=== PATIENT | male | born 1965 | race Two or more races ===

== ENCOUNTER 2019-08-08 06:26 | Day surgery (SDC) | payer OTHER ==
[~2019-08-08] VITALS: Ht 165.1 cm; Wt 68.9 kg
[2019-08-08] VITALS (10 sets, daily range): BP systolic 119–145; BP diastolic 59–83
[~2019-08-08 06:26] MED LIST: Clindamycin 600mg/D5W 50ml IV ONE; celeBREX 200mg Cap **SURGERY PATIENTS ONLY ORAL ONE; oxyCONTIN 20mg tab ORAL ONE
--- NOTE | 2019-08-08 06:52 | Pre-Procedure Note/Attestation ---
Pre-Procedure Note/Attestation Complete Prior to Procedure Planned Procedure: right Procedure Narrative: rt shoulder scope, sad, mini sonia, rowley capsular release Indications for Procedure Pre-Operative Diagnosis: rt shoulder impingement. Attestation I attest that I discussed the nature of the procedure; its benefits; risks and complications; and alternatives (and the risks and benefits of such alternatives ), prior to the procedure, with the patient (or the patient's legal insurance sales representative). I attest that, if there was a reasonable possibility of needing a blood transfusion, the patient (or the patient's legal insurance sales representative) was given the [facility] standardized written summary, pursuant to the [place] Blood Safety Act ([place] Health and Safety Code # 1645, as amended). I attest that I re-evaluated the patient just prior to the surgery and that there has been no change in the patient's H&P, except as documented below: none Navi Apple MD Aug 08, 2019 06:51
[2019-08-08] MEDS ORDERED: Ropivacaine 5mg/ml Vial 30ml INJ ONE (07:03)
[2019-08-08] MEDS ORDERED: Lidocaine 1% MPF 10mg/ml 5ml ONE (07:09)
[2019-08-08] MEDS ORDERED: Propofol 200mg/20ml IV ONE (07:09)
[2019-08-08] MEDS ORDERED: Ketorolac 30mg Inj ONE (07:09)
[2019-08-08] MEDS ORDERED: fentaNYL 100 mcg/2 mL IV ONE (07:10)
[2019-08-08] MEDS ORDERED: Midazolam 2mg/2ml Inj ONE (07:10)
[2019-08-08] MEDS ORDERED: GABAPENTIN300 MG ORAL (07:11)
[2019-08-08] MEDS ORDERED: MELATONIN1 MG PO (07:11)
[2019-08-08] MEDS ORDERED: METFORMIN HCL500 M1 ORAL (07:11)
[2019-08-08] MEDS ORDERED: Tylenol #3 tab (300mg/30mg) ORAL PRN (07:45)
[2019-08-08] MEDS ORDERED: D5 1/2NS 1,000 ML IV SCH (07:45)
[2019-08-08] MEDS ORDERED: HYDROmorphone 1mg/ml Carpuject SUBQ PRN (07:45)
[2019-08-08] MEDS ORDERED: HYDROcodone/Acetamin 5/325 tab ORAL PRN (07:45)
[2019-08-08] MEDS ORDERED: LR 1000ml 1,000 ML IVLG SCH (07:57)
--- NOTE | 2019-08-08 07:57 | Anethesia Preoperative Eval ---
Anesthesia Pre-op PMH/ROS General Date of Evaluation: Aug 08, 2019 Time of Evaluation: 07:20 Anesthesiologist: Melinda ASA Score: ASA 2 Mallampati Score Class I : Soft palate, uvula, fauces, pillars visible Class II: Soft palate, uvula, fauces visible Class III: Soft palate, base of uvula visible Class IV: Only hard plate visible Mallampati Classification: Class II Surgeon: Ambika Diagnosis: R shoulder pain Surgical Procedure: R shoulder scope Anesthesia History: none Family History: no anesthesia problems Allergies: Coded Allergies: No Known Allergies (Unverified , 08/03/19) Medications: see eMAR Patient NPO?: Yes Past Medical History Cardiovascular: Reports: HTN - borderline; Denies: CAD, OR, valve dz, arrhythmia, other Pulmonary: Denies: asthma, COPD, SAMUEL, other Gastrointestinal/Genitourinary: Reports: GERD - mild; Denies: CRI, ESRD, other Neurologic/Psychiatric: Denies: dementia, CVA, depression/anxiety, TIA, other Endocrine: Reports: DM - stable on pills; Denies: hypothyroidism, steroids, other HEENT: Denies: cataract (L), cataract (R), glaucoma, [place] (L), [place] (R), other Hematology/Immune: Denies: anemia, DVT, bleeding disorder, other Musculoskeletal/Integumentary: Reports: OA; Denies: RA, DJD, DDD, edema, other PMH Narrative: as above PSxH Narrative: L clavicle ORIF Anesthesia Pre-op Phys. Exam Physician Exam Last Vital Signs Date Time Temp Pulse Resp B/P (MAP) Pulse Ox O2 Delivery O2 Flow Rate FiO2 08/08/19 07:18 Room Air 08/08/19 07:08 98.1 78 18 145/81 98 Constitutional: NAD Neurologic: CN 2-12 intact Cardiovascular: RRR, no M/R/G Respiratory: CTA Gastrointestinal: S/NT/ND Airway Exam Mallampati Score: Class II MO: full Neck: flexible ROM: full Teeth: missing Dentures: upper - partials, lower Anesthesia Pre-op A/P Labs see chart Studies Pre-op Studies: EKG - NSR Risk Assessment & Plan Assessment: ASA 2 Plan: GA with LMA R brachial plexus block for post op pain control Status Change Before Surgery: No Pre-Antibiotics Drug: Ancef 1 gr. Given Within 1 Hr of Incision: Yes Time Given: 08:35 Rhett Lawrence MD Aug 08, 2019 07:57
[2019-08-08] MEDS ORDERED: NS Irrig 4000ml IRRIG ONE (08:00)
[2019-08-08] MEDS ORDERED: Ketorolac 30mg Inj IV PRN (08:00)
[2019-08-08] MEDS ORDERED: LR 1000ml ONE (08:00)
[2019-08-08] MEDS ORDERED: DiphenhydrAMINE 50mg/ml Inj IVP PRN (08:00)
[2019-08-08] MEDS ORDERED: Meperidine 25mg/0.5ml Inj (FOR RIGORS ONLY) IV PRN (08:00)
--- NOTE | 2019-08-08 09:50 | Brief Operative Note ---
Immediate Post Operative Note Operative Note Chief Complaint: rt shoulder pain Pre-op Diagnosis: rt shoulder impingement. Procedure: rt shoulder scope pancapsular release, sad, mini sonia Post-op Diagnosis: same as pre-op Findings: consistent w/pre-op dx studies Surgeon: md daniella Tax Compliance Agent: sue murphy Anesthesiologist: md sohan Anesthesia: general Specimen: none Complications: none Condition: stable Fluids: ns Estimated Blood Loss: minimal Drains: none Implant(s) used?: No Navi Apple MD Aug 08, 2019 09:50
--- NOTE | 2019-08-08 10:02 | Immediate Post-Op Evaluation ---
Immediate Post-Op Evalulation Immediate Post-Op Evalulation Procedure: R shoulder arthroscopy subacromion decompression Date of Evaluation: Aug 08, 2019 Time of Evaluation: 10:01 IV Fluids: 1000 Blood Products: none Estimated Blood Loss: min Urinary Output: none Blood Pressure Systolic: 139 Blood Pressure Diastolic: 73 Pulse Rate: 64 Respiratory Rate: 20 O2 Sat by Pulse Oximetry: 99 Temperature (Fahrenheit): 97.8 Pain Score (1-10): 1 Nausea: No Vomiting: No Complications none Patient Status: reacts, patent, none Hydration Status: adequate Rhett Lawrence MD Aug 08, 2019 10:02
--- NOTE | 2019-08-08 11:50 | NUR ---
Patient moving all right fingers well. Arm sling in place. Denies discomfort at present. Continue ice pack to right shoulder.
--- NOTE | 2019-08-08 11:51 | 48 Hour Post Anesthesia Eval ---
Post Anesthesia Evaluation Procedure: R shoulder arthroscopy subacromion decompression Date of Evaluation: Aug 08, 2019 Time of Evaluation: 11:50 Blood Pressure Systolic: 124 0: 59 Pulse Rate: 76 Respiratory Rate: 20 Temperature (Fahrenheit): 97.6 O2 Sat by Pulse Oximetry: 99 Airway: patent Nausea: No Vomiting: No Pain Intensity: 1 Hydration Status: adequate Cardiopulmonary Status: stable Mental Status/LOC: patient returned to baseline Follow-up Care/Observations: n/a Post-Anesthesia Complications: none Follow-up care needed: ready to discharge Rhett Lawrence MD Aug 08, 2019 11:51
--- NOTE | 2019-08-08 13:00 | Operative Note - Dictated ---
DATE OF OPERATION: 08/08/2019 PREOPERATIVE DIAGNOSES: 1. Right shoulder impingement. 2. Right shoulder severe frozen shoulder and adhesive capsulitis. POSTOPERATIVE DIAGNOSES: 1. Right shoulder severe adhesive capsulitis. 2. Right shoulder impingement. 3. No evidence of rotator cuff tear. PROCEDURE: 1. Right shoulder manipulation under anesthesia. 2. Right shoulder arthroscopy and extensive intra-articular shaving. 3. Right shoulder rowley-capsular release anteriorly, inferior and posteriorly. 4. Right shoulder subacromial bursoscopy, bursectomy, subacromial decompression. 5. Right shoulder mini-Arin procedure (resection of inferior 30% distal end of the clavicle for coplaning). SURGEON: Navi Apple M.D. SIDEWALK REPAIRER: Myranda Ward PA-C. Professor Of Environmental Studies was present during the actual operative portion of the case and was important and essential part of the operation. During the operation, the camp assistant held and operated the arthroscopic camera for visualization, assisted by manipulating the arm to help with visualization, and helped with essential parts of the repair process as necessary such as operating surgical instruments under surgeon supervision, suture management, and wound closures. ANESTHESIOLOGIST: Rhett Lawrence M.D. ANESTHESIA: General LMA anesthesia combined with interscalene block. EBL: Less than 20 mL. COMPLICATIONS: None. SURGICAL INDICATION: The patient is a 54-year-old male, who sustained the above injury to his shoulder. The patient was treated non-operative initially, but this did not alleviate the patients symptoms. Therefore, after discussing all non-surgical and surgical options, and discussing all foreseeable risk and benefits of surgery, the patient opted for surgical treatment as described above. PATIENT POSITIONING: The patient was brought to the operating room table and was placed on the operating room table. All pressure points were well padded. General anesthesia was induced and the patient was then placed in the lateral decubitus position. All pressure points were well padded again and an axillary roll was placed. The patient shoulder was then prepped and draped in the usual sterile fashion. Time-out was performed and the appropriate preoperative antibiotic was given by the anesthesiologist. EXAMINATION OF SHOULDER UNDER ANESTHESIA: The shoulder was examined under anesthesia with all muscles well relaxed. The shoulder was forward flexed, abducted and was placed through full range of external and internal rotation. The anterior, posterior, and inferior stability of the shoulder was checked. The exam revealed there was extensive adhesive capsulitis and there was significant limitation range of motion, but there was no instability. At this point, the shoulder was gently manipulated and the arm was brought into forward flexion up to 90 degrees, abduction up to 90 degrees and external internal rotated up to 90 degrees with break up adhesions. At this point, the arm was hung on a 15 pounds of traction and portal placement was initiated. PORTAL PLACEMENT: The posterior portal was established 2 cm inferior and 1 cm medial to the edge of the posterior acromion. A 1 cm skin incision was made using an eleven blade and using the blunt obturator, the cannula was gently placed through the capsule. The mid-glenoid portal was established just lateral to the coracoid process under direct visualization. Direction of the cannula was first established using a spinal needle, and subsequently, the cannula was placed through the capsule with a blunt obturator. DIAGNOSTIC ARTHROSCOPY: The biceps tendon was probed and pulled through the joint for visualization. It appeared normal. The biceps anchor was palpated with a probe and was visualized. There was extensive hyperemia of the capsule and the joint, but the biceps anchor was intact. The posterior labrum and axillary recess was visualized. There was extensive hyperemia of the posterior capsule and actually reassessed the labrum was intact. The glenoid articular surface was visualized and it appeared normal. The articular surface of the rotator cuff was visualized and probed next. There was no evidence of articular sided rotator cuff tear extending from the supraspinatus back to the posterior cuff. The Humeral head articular surface was then visualized. There was no evidence of articular cartilage damage. Next the anterior labrum, middle glenohumeral ligament, subscapularis tendon, and the anterior inferior glenohumeral ligament were evaluated. There was extensive hyperemia and inflammation of the rotator interval, anterior inferior glenohumeral ligament and capsule. The subscapularis was intact. There were no tears. At this point, the scope was moved to the mid-glenoid portal and the posterior structures including the posterior labrum, posterior capsule and posterior cuff were visualized. The posterior capsule was hyperemic and inflamed due to adhesive capsulitis. The subscapularis recess was devoid of any loose bodies and the anterior capsule was well attached to the humeral neck. The middle and anterior inferior glenohumeral ligament was visualized. Again, there was hyperemia of the ligaments. OPERATIVE DEBRIDEMENTS AND REPAIR: Care was given to all partial thickness tears and frayed structures in the shoulder joint. The frayed rotator cuff and labrum was debrided using a shaver initially through the anterior portal and subsequently through the posterior portal to complete the debridement. This allowed for smooth debridement of all affected structures and all loose fragments were removed. At this point, care was given to the adhesive capsulitis. Using a ArthroCare device, the rotated humeral was opened and freed. Subsequently, using ArthroCare device as well as baskets, the anterior as well as anteroinferior glenohumeral ligaments were released all the way to the 6 o'clock position. Care was given to release the capsule anteriorly inferiorly with a basket to avoid thermal damage to the axillary nerve. Subsequently, the scope was placed in the anterior portal and the posterior capsule release superiorly all the way to the biceps and inferiorly around the glenoid, hugging the glenoid using a basket all the way to the 6 o'clock position. This released the entire capsule circumferentially. The capsular release was right next to the glenoid to avoid damage to the axillary nerve and the thermal bipolar device was only used in this more superior portion away from the axillary nerve. DIAGNOSTIC BURSOSCOPY AND SUBACROMIAL DECOMPRESSION: The subacromial bursa was entered from the posterior portal. The anterior portal was established under the CA ligament using a switching stick. Subacromial arthroscopy was initiated. There was extensive bursitis and thickened and inflamed bursa tissue present. The CA ligament appeared to be scuffed and frayed. The shaver was placed through the anterior cannula and debridement of the hypertrophic bursa tissue was accomplished. Once visualization was adequate, a lateral portal was established using a blunt trochar in the mid portion of the acromion bone in the anterior-posterior direction and approximately 2 cm lateral to the lateral edge of the acromion. Using combination of shaver and electrocautery the CA ligament was released from the undersurface of the acromion and a complete bursectomy was accomplished. At this point, a subacromial decompression was performed using a telma initially taking off 5-8 mm of the anterolateral edge of the acromion from the lateral portal and viewing from the posterior portal. Then the lateral border of the undersurface of the acromion was decompressed to the same dept as the anterolateral edge. A posterior trough was then created in the acromion in line with the posterior edge of the clavicle. At this point, the scope was placed in the lateral portal and the subacromial decompression was performed from the posterior portal decompressing the undersurface of the acromion to dept of 5-8 mm. The decompression was performed anterior to the previously marked trough all the way medially to the level of the AC joint. At all times, care was given not to take off too much bone in order to avoid risk of fracture of the acromion. An excellent subacromial decompression was performed in this fashion. At this point, the bursal side of the rotator cuff was examined. All the bursa over the rotator cuff was removed and the rotator cuff was examined with a probe. The arm was placed into external rotation, neutral, and then internal rotation and there was no evidence of tear of the rotator cuff. The scope was then placed in the posterior portal and the subacromial decompression was rechecked to assure there is no area of bone spur that would be still impinging onto the rotator cuff. EVALUATION OF DISTAL CLAVICLE AND DISTAL CLAVICLE RESECTION: Care was given to the distal end of the clavicle. Using electrocautery and grisel, the distal end of the bursa and soft tissue around the distal end of the clavicle was debrided and cleaned. Care was given not to inflict excessive trauma to the ligaments of the AC joint. The distal end of the clavicle appeared to have an inferior osteophyte extending down well bellow the level of the acromion at the level of the AC joint. This appeared to be impinging onto the supraspinatus muscle belly and the musculotendinous junction of the rotator cuff. A mini-Arin procedure was performed by using a telma to resect the inferior 30% of the distal end of the clavicle. This decompression allowed space for the inferior structures to slide without impingement. This co-plained the inferior edge of the distal clavicle with the inferior edge of the acromion. CONDITION AT DISCHARGE FROM OPERATING ROOM: The skin was re-approximated and sterile dressing and sling were applied. All lap counts and instrument counts were correct. The patient tolerated the procedure well without complications and was taken to the recovery room in stable conditions. Navi Gaurav Apple DR: ABBE JOB#: [id number] CC: HARRISON
== END 2019-08-08 11:50 | disposition home or self-care (01) ==
LOC: SUR 06:26
DX: M75.41 Impingement syndrome of right shoulder (principal); M75.01 Adhesive capsulitis of right shoulder; I10 Essential (primary) hypertension; K21.9 Gastro-esophageal reflux disease without esophagitis; E11.9 Type 2 diabetes mellitus without complications; M19.90 Unspecified osteoarthritis, unspecified site
CPT/HCPCS: 29823; 29824; 29825; 82962; J0690; J1885; J2250; J2704; J2795; J3010; J7120; 94003; 94150